=== PATIENT | female | born 1950 | race Caucasian/White ===

== ENCOUNTER 2022-10-01 03:21 | Inpatient (IN) | payer OTHER ==
[2022-10-01] VITALS (31 sets, daily range): BP systolic 137–181; PULSE 65–114; RESP 14–20; TEMP 97–101.3; O2SAT 60–100
[~2022-10-01] VITALS: Ht 157.5 cm; Wt 54.4 kg
--- NOTE | 2022-10-01 03:21 | NUR ---
Patient to ER bed 02 to gown for evaluation. Side rails up. Report given to RILEY SCOTT.
--- NOTE | 2022-10-01 03:22 | NUR ---
Dr. CAVAZOS at bedside examining the patient.
--- NOTE | 2022-10-01 03:23 | NUR ---
RT AT BEDSIDE.
[2022-10-01] MEDS ORDERED: NACL 0.9% 1,000 ML IV ONE (03:30)
[2022-10-01] MEDS ORDERED: levETIRAcetam 1,000 MG IV BAG 100 ML IV ONE (03:30)
[2022-10-01 03:51] LABS: BILIRUBIN,URINE NEGATIVE (NEGATIVE); BLOOD, URINE 1+ (NEGATIVE); COLOR,URINE YELLOW (YELLOW); GLUCOSE,URINE NEGATIVE (NEGATIVE); KETONES,URINE NEGATIVE (NEGATIVE); LEUKOCYTE ESTERASE ,URINE 3+ (NEGATIVE); NITRITE, URINE NEGATIVE (NEGATIVE); PH,URINE 8.5 (5.0-8.0); PROTEIN URINE 1+ (NEGATIVE); UROBILINOGEN,URINE 0.2 (0.2-1.0)
[2022-10-01 03:55] LABS: BASOPHILS % (AUTO) 0.4 % (0.0-2.0); EOSINOPHILS # (AUTO) 0.1 K/uL (0.0-0.4); EOSINOPHILS % (AUTO) 2.1 % (0.0-4.0); HEMOGLOBIN 11.3 g/dL (12.0-16.0); LYMPHOCYTES # (AUTO) 0.4 K/uL (1.0-5.5); LYMPHOCYTES % (AUTO) 6.7 % (20.5-51.5); MEAN CORPUSCULAR HEMOGLOBIN 28 pg (27-31); MEAN CORPUSCULAR HGB CONC 32 % (32-36); MEAN CORPUSCULAR VOLUME 87 fL (79.0-98.0); MONOCYTES # (AUTO) 0.3 K/uL (0.0-1.0); MONOCYTES % (AUTO) 5.6 % (1.7-9.3); NEUTROPHILS # (AUTO) 4.8 K/uL (1.8-7.7); NEUTROPHILS % (AUTO) 85.2 % (40.0-70.0); PLATELET COUNT (AUTO) 442 K/uL (130-430); RED BLOOD CELL COUNT(AUTO) 4.01 MIL/uL (4.2-6.2); RED CELL DISTRIBUTION WIDTH 14.6 % (9.0-15.0); WHITE BLOOD COUNT (AUTO) 5.6 K/uL (4.8-10.8)
[2022-10-01] MEDS ORDERED: levETIRAcetam 1,000 MG in NS 90 ML IV ONE (04:00)
[2022-10-01 04:11] LABS: PROTHROMBIN TIME 10.3 SECS (9.5-12.5)
[2022-10-01 04:17] LABS: ALBUMIN 2.6 g/dL (3.4-4.8); CALCIUM 8.3 mg/dL (8.4-11.0); CREATININE 0.71 mg/dL (0.55-1.30); PHOSPHORUS 4.5 mg/dL (2.7-4.5); TOTAL BILIRUBIN 0.2 mg/dL (0.0-1.0)
--- NOTE | 2022-10-01 04:30 | NUR ---
PATIENT TAKEN TO CT.
--- NOTE | 2022-10-01 04:40 | NUR ---
PATIENT IS BACK FROM CT.
[2022-10-01 04:43] LABS: CLARITY/URINE CLOUDY (CLEAR)
[2022-10-01 04:44] LABS: BACTERIA,URINE MANY /HPF (None Seen); WBC,URINE 20-50 /HPF (0-3)
[2022-10-01 04:45] LABS: TRIPLE PHOSPHATE CRYSTAL,UR 0-10 /HPF (None Seen)
[2022-10-01] MEDS ORDERED: cefTRIAXone 1 GM in D5W 50 ML IV ONE (05:00)
[2022-10-01] MEDS ORDERED: NACL 0.9% 1,000 ML IV SCH (05:15)
[2022-10-01] MEDS ORDERED: INSULIN REGULAR, HUMAN 100 UNITS/ML, 3 ML VIAL (humuLIN R) SUBCUT PRN ×2 (05:15→10:15)
[2022-10-01] MEDS ORDERED: cefTRIAXone 1 GM VIAL ONE (05:52)
--- NOTE | 2022-10-01 07:14 | NUR ---
REPORT GIVEN AND CARE TANSFERRED TO DECLAN LIN FOR CONTINUITY OF CARE.
--- NOTE | 2022-10-01 07:15 | NUR ---
RECEIVED PT FROM RILEY SCOTT. ASSUMED CARE.
[2022-10-01] MEDS ORDERED: DEXTROSE 50%-WATER 50 ML DISP.SYRIN IVP PRN (08:15)
[2022-10-01] MEDS ORDERED: GLUCOSE (DEXTROSE) ORAL GEL -Adults PO PRN (08:15)
[2022-10-01] MEDS ORDERED: D5W 1,000 ML IV PRN (08:15)
--- NOTE | 2022-10-01 08:25 | NUR ---
Transfer to ICU BED 7 via ACLS protocol. Licensed nurse present. IV present no signs or symptoms of infiltration.
--- NOTE | 2022-10-01 08:30 | NUR ---
RT NOTE: 0830 Helped transport patient from ER 2 to ICU 7. Patient was ventilated with [place] at 15LPM, FiO2 100%. Patient tolerated tranfer well. No respiratory issues during transport.
[2022-10-01] MEDS: PIPERACILLIN/TAZO 3.375/DEX-IS 50 ML IV SCH ×4 (08:40→23:05)
--- NOTE | 2022-10-01 08:53 | NUR ---
rt notes 0853 received pt from ED RT, Pt on AC 14,400VT, PEEP 5 100% FIO2. Portex 7. Titrated fio2 to 60%, pt saturating 100%. no resp distress noted.
[2022-10-01] MEDS ORDERED: LevETIRAcetam 500 MG/5 ML UDC ORAL LIQUID GT SCH ×2 (10:10→21:00)
[2022-10-01] MEDS ORDERED: DEXTROSE 50% JECT 50 ML DISP.SYRIN IVP PRN (10:15)
[2022-10-01] MEDS ORDERED: ACETAMINOPHEN 650 MG/20.3 ML UDC GT PRN (10:15)
--- NOTE | 2022-10-01 10:20 | NUR ---
Called Dr. Luna with a consult. He will be here this afternoon
[2022-10-01 10:30] LABS: TOTAL IRON BIND. CAPACITY 176 ug/dL (250-450)
[2022-10-01] MEDS ORDERED: FAMOTIDINE PF 20 MG/2 ML VIAL IVP ONE (10:30)
[2022-10-01] MEDS ORDERED: APIXABAN 2.5 MG TABLET PO ONE (10:30)
[2022-10-01] MEDS ORDERED: hydrALAZINE HCL 20 MG/ML VIAL IVP PRN (10:30)
[2022-10-01] MEDS ORDERED: amLODIPine BESYLATE 10 MG TABLET PO ONE (10:30)
[2022-10-01] MEDS ORDERED: DOCUSATE SODIUM 100 MG/10 ML UDC GT ONE (10:30)
[2022-10-01] MEDS ORDERED: ONDANSETRON HCL 4 MG/2 ML VIAL IVP PRN (10:30)
[2022-10-01] MEDS ORDERED: IPRATROPIUM/ALBUTEROL SULFATE 3 ML AMPUL.NEB (DUONEB) INH PRN (10:30)
[2022-10-01] MEDS ORDERED: ONDANSETRON HCL 4 MG/2 ML VIAL IVP ONE (10:30)
[2022-10-01] MEDS ORDERED: LevETIRAcetam 500 MG/5 ML UDC ORAL LIQUID GT ONE (10:30)
[2022-10-01] MEDS: METOCLOPRAMIDE HCL 10 MG/2 ML VIAL IVP SCH ×3 (11:03→23:05)
[2022-10-01] MEDS: IPRATROPIUM/ALBUTEROL SULFATE 3 ML AMPUL.NEB (DUONEB) INH SCH ×4 (11:33→23:15)
--- NOTE | 2022-10-01 11:33 | NUR ---
rt notes 1133 titrated fio2 to 40%. RILEY Hay made aware.
[2022-10-01] MEDS: D5/0.45 NS 1,000 ML IV SCH (12:30)
[2022-10-01] MEDS ORDERED: GENTAMICIN IN NACL, ISO-OSM 100 ML IV ONE (13:00)
[2022-10-01] MEDS: SCOPOLAMINE HYDROBROMIDE 1 MG PATCH .72 H (TRANSDERM-SCOP) TD SCH (14:00)
--- NOTE | 2022-10-01 14:00 | NUR ---
0840- admission from ER. Patient connected to ventilator w settings of AC 14 Fio2 80%, Tv 400 peep 5. Sats 100%. Trach size 7 PORTEX 10mm w cuff. Discussed w RT about saturation goals, lung assessment, and vap protocols. Nurse Jennifer reported vomiting en route to ICU. Patient orally suctioned. No desaturation observed. Patient turned together and observed sacral area as well as other pressure points with no evidence of pressure injuries. Optifoam placed to sacrum. 1000-rodriguez to gravity from ER emptied 550cc of yellow urine. No skin breakdown. 1030- Dr. mayers in to see patient and review home med rec. 1103- patient was medicated for vomiting 1115- Physical therapy in to see patient and perform ROM treatment. Discussed w Son Geovanni about continuing w passive ROM. 1300- antibiotics infusing as per orders. Main IVF started as per orders. 1330- Peg adaptor removed and replaced w devin valve. 1400- patient was medicated via peg and within minutes was vomiting pill residual and yellow gastric juice. She was oral suctioned and sats remains stable 98-99% with clear lungs.
[2022-10-01] MEDS: PEG 400/HYPROMELLOSE/GLYCERIN 15 ML DROPS OP SCH ×3 (14:30→20:47)
--- NOTE | 2022-10-01 14:50 | NUR ---
rt notes 1450 Titrated fio2 to 30%, no resp distress noted. RN aware.
--- NOTE | 2022-10-01 19:30 | NUR ---
PM ASSESSMENT REPORT RECEIVED FROM AM RN. PT RECEIVED IN BED WITH EYES CLOSED. VSS, NO S/S OF ACUTE DISTRESS NOTED. PT TRACH TO VENT, VENT SETTINGS: AC 14, TV 400, FIO2 30%, PEEP 5. SR ON MONITOR. RFA 20G INFUSING IVF PER ORDERS. GTUBE IN PLACE, CLAMPED. GRIFFITH CATH IN PLACE DRAINING URINE TO GRAVITY. HOB ELEVATED, BED LOCKED IN LOWEST POSITION, CALL LIGHT IN REACH. WILL CONTINUE TO MONITOR PT.
[2022-10-01] MEDS: CHLORHEXIDINE GLUCONATE 15 ML/DOSE, 480 ML MM SCH (20:41)
[2022-10-01] MEDS: GLYCOPYRROLATE 1 MG TABLET GT SCH (20:45)
[2022-10-01] MEDS: CARVEDILOL 6.25 MG TABLET (COREG) PO SCH (20:46)
[2022-10-01] MEDS: APIXABAN 2.5 MG TABLET PO SCH (20:46)
[2022-10-01] MEDS: levETIRAcetam 500 MG in NS 100 ML IV SCH (21:14)
[2022-10-02] VITALS (36 sets, daily range): BP systolic 119–162; PULSE 60–85; RESP 14–17; TEMP 97.8–100.3; O2SAT 93–100
[2022-10-02] MEDS: D5/0.45 NS 1,000 ML IV SCH ×2 (02:13→15:16)
[2022-10-02] MEDS: IPRATROPIUM/ALBUTEROL SULFATE 3 ML AMPUL.NEB (DUONEB) INH SCH ×6 (02:45→23:36)
[2022-10-02 04:53] LABS: BASOPHILS % (AUTO) 0.2 % (0.0-2.0); EOSINOPHILS % (AUTO) 0.4 % (0.0-4.0); HEMATOCRIT 28.8 % (36-48); HEMOGLOBIN 9.5 g/dL (12.0-16.0); LYMPHOCYTES # (AUTO) 0.7 K/uL (1.0-5.5); LYMPHOCYTES % (AUTO) 13.8 % (20.5-51.5); MEAN CORPUSCULAR HEMOGLOBIN 29 pg (27-31); MEAN CORPUSCULAR HGB CONC 33 % (32-36); MEAN CORPUSCULAR VOLUME 86 fL (79.0-98.0); MONOCYTES # (AUTO) 0.4 K/uL (0.0-1.0); MONOCYTES % (AUTO) 9.1 % (1.7-9.3); NEUTROPHILS # (AUTO) 3.7 K/uL (1.8-7.7); NEUTROPHILS % (AUTO) 76.5 % (40.0-70.0); PLATELET COUNT (AUTO) 356 K/uL (130-430); RED BLOOD CELL COUNT(AUTO) 3.33 MIL/uL (4.2-6.2); RED CELL DISTRIBUTION WIDTH 14.4 % (9.0-15.0); WHITE BLOOD COUNT (AUTO) 4.8 K/uL (4.8-10.8)
[2022-10-02] MEDS: PIPERACILLIN/TAZO 3.375/DEX-IS 50 ML IV SCH ×3 (05:22→18:03)
[2022-10-02] MEDS: METOCLOPRAMIDE HCL 10 MG/2 ML VIAL IVP SCH ×3 (05:23→18:02)
[2022-10-02 06:21] LABS: ALBUMIN 2.2 g/dL (3.4-4.8); CALCIUM 8.2 mg/dL (8.4-11.0); CREATININE 0.6 mg/dL (0.55-1.30); THYROID STIMULATING HORMONE 1.98 uIu/mL (0.34-4.82); TOTAL BILIRUBIN 0.2 mg/dL (0.0-1.0)
--- NOTE | 2022-10-02 07:30 | NUR ---
Received report for assumption of care. Pt resting comfortable on vent with a trach on the following settings: AC 14/400/30%/p5. 02 sats 95%. HOB up. Suctioned lots of clear oral secretions from trach and mouth. SR on monitor. Pt does not respond to questions but does move to stimulus. GT with tube feeding turned off, but will restart now. Abd soft. Pt has 2 PIV's with IVF infusing at 70cc/hr to right forearm. Pt has a rodriguze with [place] urine in bag. SR on monitor.
[2022-10-02 08:06] LABS: FOLATE (FOLIC ACID) >20.0 ng/mL (>3.0)
[2022-10-02] MEDS: CHLORHEXIDINE GLUCONATE 15 ML/DOSE, 480 ML MM SCH ×2 (09:00→22:43)
[2022-10-02] MEDS: ATORVASTATIN 10 MG TABLET GT SCH (09:31)
[2022-10-02] MEDS: MODAFINIL 100 MG TABLET (PROVIGIL) GT SCH (09:31)
[2022-10-02] MEDS: GLYCOPYRROLATE 1 MG TABLET GT SCH ×2 (09:32→22:43)
[2022-10-02] MEDS: MULTIVITAMINS TAB 1 TABLET GT SCH (09:32)
[2022-10-02] MEDS: CARVEDILOL 6.25 MG TABLET (COREG) PO SCH ×2 (09:32→22:46)
[2022-10-02] MEDS: amLODIPine BESYLATE 10 MG TABLET PO SCH (09:33)
[2022-10-02] MEDS: DOCUSATE SODIUM 100 MG/10 ML UDC GT SCH (09:33)
[2022-10-02] MEDS: APIXABAN 2.5 MG TABLET PO SCH ×2 (09:34→22:47)
[2022-10-02] MEDS: FAMOTIDINE PF 20 MG/2 ML VIAL IVP SCH (09:35)
[2022-10-02] MEDS: levETIRAcetam 500 MG in NS 100 ML IV SCH (09:36)
--- NOTE | 2022-10-02 09:40 | NUR ---
Pts son in to visit. Plan of care discussed and questions answered.
--- NOTE | 2022-10-02 10:57 | NUR ---
Pt vent was alarming high pressure on reading; hyper-oxignated patient and suctioned mouth and via ET. Pt was drooling and cleaned off dry blood from nostril and noticed maggots in nares bilaterally and underneath ET mouth guard. Infection control and wound care nurse notified. Oral and nasal care provided with syringes and peroxide. Maggots were removed. Wound care and infection control were present in the room. Addendum: 10/02/22 at 1902 by Deniz Kahn RN above entry made on wrong patient. This patient does not have maggots at this time.
--- NOTE | 2022-10-02 11:55 | NUR ---
EEG being done at bedside.
[2022-10-02] MEDS: PEG 400/HYPROMELLOSE/GLYCERIN 15 ML DROPS OP SCH ×4 (13:00→22:44)
--- NOTE | 2022-10-02 13:20 | NUR ---
Dr. Glynn in to see pt. Orders left.
--- NOTE | 2022-10-02 13:38 | NUR ---
RN DID NOT MEDICALLY CLEAR PATIENT FOR PT TREATMENT TODAY. WILL TRY AGAIN TOMORROW.
--- NOTE | 2022-10-02 14:04 | NUR ---
LIZ DONE. INFORMED RILEY KOEHLER ABOUT RESULTS.
--- NOTE | 2022-10-02 15:00 | NUR ---
Wound Evaluation: Wound Consult ordered for Low Juni Score. Patient evaluated for a low Juni score of 12. Patient was nonverbal, nonresponsive to verbal commands, intubated, and [facility] with an Isoflex MARIA ALEJANDRA mattress. Patient needs to be turned in bed. Skin is intact, with white scar tissue present on left buttock. Recommend: Reposition patient every 2 hours with pillow support. Elevate, off-load and float bilateral heels with one pillow lengthwise under each extremity. Offload pressure areas with pillows for pressure re-distribution. Perform skin care and monitor skin integrity Q shift. Use Hydraguard moisture barrier cream on moisture susceptible areas QID and PRN for soiling. Place a sacral foam dressing on sacral area for prophylaxis (change dressing daily, and as needed for dressing soiling or dislodgment; assess site every shift with peel and peak technique). Maintain patient on a low air-loss mattress.
--- NOTE | 2022-10-02 15:02 | NUR ---
Dietitian Recommendations * Glucerna 1.2 at 60 ml/hr, Free Water Flush: 50 ml Q6h via GT Provides: 1728 kcal/day, 86 gm protein/day, and 1359 ml free water/day Meets: 91% of upper end of estimated caloric needs, 80% of upper end of estimated protein needs, and 97% of upper end of estimated fluid needs LP, MS, RD Please refer to Nutrition Assessment for details. Addendum: 10/02/22 at [address] Amended: Links added.
[2022-10-02] MEDS: SOD FERRIC GLUC COMPLEX/SUC 125 MG in NS 100 ML IV SCH (15:15)
--- NOTE | 2022-10-02 16:43 | NUR ---
Letters written for patient's daughters in [place], they want to come to see their mother.
[2022-10-02] MEDS ORDERED: EPOETIN ALFA-EPBX 4,000 UNITS/ML VIAL SUBCUT ONE (17:00)
--- NOTE | 2022-10-02 17:00 | NUR ---
Son continues to visit.
[2022-10-02] MEDS ORDERED: POTASSIUM CHLORIDE 20 MEQ/PKT PACKET PO ONE (18:30)
--- NOTE | 2022-10-02 19:20 | NUR ---
Pt had a witnessed tonic clonic seizure lasting 2 minutes. No medication ordered for prn seizures seen on EMAR. Call placed to Dr. Luna and night supervisor RN made aware of event.
--- NOTE | 2022-10-02 19:25 | NUR ---
Spoke with Dr. Luna and made aware of the seizure. Orders left for ativan prn if further seizures. BEdside RN made aware.
[2022-10-02] MEDS ORDERED: VANCOMYCIN HCL 1 GM/NS PREMIX 250 ML IV ONE (20:00)
[2022-10-02] MEDS: LORazepam 2 MG/ML VIAL IVP PRN (20:27)
[2022-10-02] MEDS ORDERED: VANCOMYCIN HCL 1000 MG/VIAL IV ONE (21:53)
[2022-10-03] VITALS (35 sets, daily range): BP systolic 97–156; PULSE 62–88; RESP 14–36; TEMP 97.2–100.5; O2SAT 88–100
[2022-10-03] MEDS: levETIRAcetam 500 MG in NS 100 ML IV SCH ×2 (02:07→09:03)
[2022-10-03] MEDS: PIPERACILLIN/TAZO 3.375/DEX-IS 50 ML IV SCH ×4 (02:09→17:30)
[2022-10-03] MEDS: METOCLOPRAMIDE HCL 10 MG/2 ML VIAL IVP SCH ×4 (02:09→17:29)
[2022-10-03] MEDS: IPRATROPIUM/ALBUTEROL SULFATE 3 ML AMPUL.NEB (DUONEB) INH SCH ×6 (03:42→23:39)
[2022-10-03 05:23] LABS: BASOPHILS % (AUTO) 0.5 % (0.0-2.0); EOSINOPHILS # (AUTO) 0.1 K/uL (0.0-0.4); EOSINOPHILS % (AUTO) 1.8 % (0.0-4.0); HEMATOCRIT 28.6 % (36-48); LYMPHOCYTES # (AUTO) 0.9 K/uL (1.0-5.5); LYMPHOCYTES % (AUTO) 17.5 % (20.5-51.5); MEAN CORPUSCULAR HEMOGLOBIN 30 pg (27-31); MEAN CORPUSCULAR HGB CONC 35 % (32-36); MEAN CORPUSCULAR VOLUME 86 fL (79.0-98.0); MONOCYTES # (AUTO) 0.5 K/uL (0.0-1.0); MONOCYTES % (AUTO) 10.1 % (1.7-9.3); NEUTROPHILS # (AUTO) 3.4 K/uL (1.8-7.7); NEUTROPHILS % (AUTO) 70.1 % (40.0-70.0); PLATELET COUNT (AUTO) 347 K/uL (130-430); RED BLOOD CELL COUNT(AUTO) 3.33 MIL/uL (4.2-6.2); RED CELL DISTRIBUTION WIDTH 14.4 % (9.0-15.0); WHITE BLOOD COUNT (AUTO) 4.9 K/uL (4.8-10.8)
[2022-10-03] MEDS: D5/0.45 NS 1,000 ML IV SCH (05:54)
[2022-10-03 05:56] LABS: ALBUMIN 2.2 g/dL (3.4-4.8); CALCIUM 7.6 mg/dL (8.4-11.0); CREATININE 0.49 mg/dL (0.55-1.30); PHOSPHORUS 2.4 mg/dL (2.7-4.5); TOTAL BILIRUBIN 0.1 mg/dL (0.0-1.0)
[2022-10-03] MEDS ORDERED: POTASSIUM CHLORIDE 40 MEQ in NS 250 ML IV ONE (08:45)
[2022-10-03] MEDS: APIXABAN 2.5 MG TABLET PO SCH ×2 (09:00→22:11)
[2022-10-03] MEDS: MODAFINIL 100 MG TABLET (PROVIGIL) GT SCH (09:00)
[2022-10-03] MEDS: CARVEDILOL 6.25 MG TABLET (COREG) PO SCH ×2 (09:01→22:10)
[2022-10-03] MEDS: GLYCOPYRROLATE 1 MG TABLET GT SCH ×2 (09:01→22:07)
[2022-10-03] MEDS: ATORVASTATIN 10 MG TABLET GT SCH (09:01)
[2022-10-03] MEDS: FAMOTIDINE PF 20 MG/2 ML VIAL IVP SCH (09:02)
[2022-10-03] MEDS: MULTIVITAMINS TAB 1 TABLET GT SCH (09:02)
[2022-10-03] MEDS: amLODIPine BESYLATE 10 MG TABLET PO SCH (09:02)
[2022-10-03] MEDS: DOCUSATE SODIUM 100 MG/10 ML UDC GT SCH (09:02)
[2022-10-03] MEDS: CHLORHEXIDINE GLUCONATE 15 ML/DOSE, 480 ML MM SCH ×2 (09:04→22:07)
[2022-10-03] MEDS: PEG 400/HYPROMELLOSE/GLYCERIN 15 ML DROPS OP SCH ×4 (09:04→22:08)
[2022-10-03] MEDS ORDERED: POTASSIUM CHLORIDE 20 MEQ/PKT PACKET GT ONE (10:00)
[2022-10-03] MEDS ORDERED: ACETAMINOPHEN 650 MG/20.3 ML UDC GT PRN (10:15)
[2022-10-03] MEDS ORDERED: LORazepam 2 MG/ML VIAL IVP PRN (10:15)
--- NOTE | 2022-10-03 10:21 | NUR ---
Called [facility]ena [facility] with a consult,spoke with Kiah from the exchage
[2022-10-03] MEDS: POTASSIUM CHLORIDE 20 MEQ/PKT PACKET GT SCH ×2 (14:15→22:06)
[2022-10-03] MEDS: VANCOMYCIN HCL 1,250 MG in NS 250 ML IV SCH (14:16)
[2022-10-03] MEDS: LORazepam 2 MG/ML VIAL IVP PRN (14:30)
[2022-10-03] MEDS: SOD FERRIC GLUC COMPLEX/SUC 125 MG in NS 100 ML IV SCH (15:48)
[2022-10-03] MEDS ORDERED: levETIRAcetam 500 MG IV PREMIX 100 ML IV ONE (17:00)
[2022-10-03] MEDS: ACETYLCYSTEINE 20% 4 ML VIAL (RT) INH SCH (19:53)
[2022-10-03] MEDS: levETIRAcetam 1,000 MG IV BAG 100 ML IV SCH (21:53)
[2022-10-03] MEDS: LevETIRAcetam 500 MG/5 ML UDC ORAL LIQUID GT SCH (22:07)
[2022-10-04] VITALS (36 sets, daily range): BP systolic 108–147; PULSE 59–76; RESP 14–23; TEMP 98.4–99.1; O2SAT 96–100
[2022-10-04] MEDS: METOCLOPRAMIDE HCL 10 MG/2 ML VIAL IVP SCH ×4 (00:36→17:18)
[2022-10-04] MEDS: PIPERACILLIN/TAZO 3.375/DEX-IS 50 ML IV SCH ×4 (00:39→17:18)
[2022-10-04] MEDS: IPRATROPIUM/ALBUTEROL SULFATE 3 ML AMPUL.NEB (DUONEB) INH SCH ×6 (04:14→23:47)
[2022-10-04 05:43] LABS: BASOPHILS % (AUTO) 0.7 % (0.0-2.0); EOSINOPHILS # (AUTO) 0.2 K/uL (0.0-0.4); EOSINOPHILS % (AUTO) 4.5 % (0.0-4.0); HEMATOCRIT 27.3 % (36-48); HEMOGLOBIN 9.1 g/dL (12.0-16.0); LYMPHOCYTES % (AUTO) 21.1 % (20.5-51.5); MEAN CORPUSCULAR HEMOGLOBIN 29 pg (27-31); MEAN CORPUSCULAR HGB CONC 33 % (32-36); MEAN CORPUSCULAR VOLUME 86 fL (79.0-98.0); MONOCYTES # (AUTO) 0.4 K/uL (0.0-1.0); MONOCYTES % (AUTO) 9.8 % (1.7-9.3); NEUTROPHILS # (AUTO) 2.9 K/uL (1.8-7.7); NEUTROPHILS % (AUTO) 63.9 % (40.0-70.0); PLATELET COUNT (AUTO) 328 K/uL (130-430); RED BLOOD CELL COUNT(AUTO) 3.18 MIL/uL (4.2-6.2); RED CELL DISTRIBUTION WIDTH 14.6 % (9.0-15.0); WHITE BLOOD COUNT (AUTO) 4.5 K/uL (4.8-10.8)
[2022-10-04 06:10] LABS: CALCIUM 7.3 mg/dL (8.4-11.0); CREATININE 0.62 mg/dL (0.55-1.30); PHOSPHORUS 2.6 mg/dL (2.7-4.5)
[2022-10-04] MEDS: ACETYLCYSTEINE 20% 4 ML VIAL (RT) INH SCH ×4 (08:21→19:50)
[2022-10-04] MEDS: APIXABAN 2.5 MG TABLET PO SCH ×2 (08:34→22:57)
[2022-10-04] MEDS: ATORVASTATIN 10 MG TABLET GT SCH (08:35)
[2022-10-04] MEDS: CARVEDILOL 6.25 MG TABLET (COREG) PO SCH ×2 (08:35→22:56)
[2022-10-04] MEDS: MODAFINIL 100 MG TABLET (PROVIGIL) GT SCH (08:35)
[2022-10-04] MEDS: GLYCOPYRROLATE 1 MG TABLET GT SCH ×2 (08:35→22:54)
[2022-10-04] MEDS: amLODIPine BESYLATE 10 MG TABLET PO SCH (08:35)
[2022-10-04] MEDS: MULTIVITAMINS TAB 1 TABLET GT SCH (08:36)
[2022-10-04] MEDS: POTASSIUM CHLORIDE 20 MEQ/PKT PACKET GT SCH (08:36)
[2022-10-04] MEDS: LevETIRAcetam 500 MG/5 ML UDC ORAL LIQUID GT SCH (08:37)
[2022-10-04] MEDS: PEG 400/HYPROMELLOSE/GLYCERIN 15 ML DROPS OP SCH ×4 (08:37→22:55)
[2022-10-04] MEDS: FAMOTIDINE PF 20 MG/2 ML VIAL IVP SCH (08:37)
[2022-10-04] MEDS: levETIRAcetam 1,000 MG IV BAG 100 ML IV SCH ×2 (08:37→22:55)
[2022-10-04] MEDS: DOCUSATE SODIUM 100 MG/10 ML UDC GT SCH (08:38)
[2022-10-04] MEDS: CHLORHEXIDINE GLUCONATE 15 ML/DOSE, 480 ML MM SCH ×2 (08:38→22:55)
[2022-10-04] MEDS: SCOPOLAMINE HYDROBROMIDE 1 MG PATCH .72 H (TRANSDERM-SCOP) TD SCH (12:23)
[2022-10-04] MEDS: VANCOMYCIN HCL 1,250 MG in NS 250 ML IV SCH (13:24)
[2022-10-04] MEDS: SOD FERRIC GLUC COMPLEX/SUC 125 MG in NS 100 ML IV SCH (15:50)
[2022-10-04] MEDS: LORazepam 2 MG/ML VIAL IVP PRN (16:27)
[2022-10-05] VITALS (20 sets, daily range): BP systolic 121–156; PULSE 63–84; RESP 14–20; TEMP 97.5–98.6; O2SAT 97–100
[2022-10-05] MEDS: METOCLOPRAMIDE HCL 10 MG/2 ML VIAL IVP SCH ×4 (00:06→19:02)
[2022-10-05] MEDS: IPRATROPIUM/ALBUTEROL SULFATE 3 ML AMPUL.NEB (DUONEB) INH SCH ×6 (02:42→22:56)
[2022-10-05 04:58] LABS: BASOPHILS % (AUTO) 0.4 % (0.0-2.0); EOSINOPHILS # (AUTO) 0.2 K/uL (0.0-0.4); HEMATOCRIT 27.4 % (36-48); HEMOGLOBIN 9.1 g/dL (12.0-16.0); LYMPHOCYTES # (AUTO) 1.1 K/uL (1.0-5.5); LYMPHOCYTES % (AUTO) 18.5 % (20.5-51.5); MEAN CORPUSCULAR HEMOGLOBIN 29 pg (27-31); MEAN CORPUSCULAR HGB CONC 33 % (32-36); MEAN CORPUSCULAR VOLUME 87 fL (79.0-98.0); MONOCYTES # (AUTO) 0.5 K/uL (0.0-1.0); MONOCYTES % (AUTO) 8.7 % (1.7-9.3); NEUTROPHILS # (AUTO) 4.1 K/uL (1.8-7.7); NEUTROPHILS % (AUTO) 68.4 % (40.0-70.0); PLATELET COUNT (AUTO) 364 K/uL (130-430); RED BLOOD CELL COUNT(AUTO) 3.16 MIL/uL (4.2-6.2); RED CELL DISTRIBUTION WIDTH 14.9 % (9.0-15.0)
[2022-10-05 05:30] LABS: CALCIUM 7.8 mg/dL (8.4-11.0); CREATININE 0.54 mg/dL (0.55-1.30); PHOSPHORUS 2.9 mg/dL (2.7-4.5)
[2022-10-05] MEDS: ACETYLCYSTEINE 20% 4 ML VIAL (RT) INH SCH ×4 (07:12→19:10)
[2022-10-05] MEDS: DOCUSATE SODIUM 100 MG/10 ML UDC GT SCH (09:54)
[2022-10-05] MEDS: POTASSIUM CHLORIDE 20 MEQ/PKT PACKET GT SCH (09:55)
[2022-10-05] MEDS: ATORVASTATIN 10 MG TABLET GT SCH (09:55)
[2022-10-05] MEDS: MULTIVITAMINS TAB 1 TABLET GT SCH (09:55)
[2022-10-05] MEDS: GLYCOPYRROLATE 1 MG TABLET GT SCH ×2 (09:56→22:04)
[2022-10-05] MEDS: MODAFINIL 100 MG TABLET (PROVIGIL) GT SCH (09:56)
[2022-10-05] MEDS: CHLORHEXIDINE GLUCONATE 15 ML/DOSE, 480 ML MM SCH ×2 (09:57→21:00)
[2022-10-05] MEDS: FAMOTIDINE PF 20 MG/2 ML VIAL IVP SCH (09:57)
[2022-10-05] MEDS: PEG 400/HYPROMELLOSE/GLYCERIN 15 ML DROPS OP SCH ×4 (09:58→21:00)
[2022-10-05] MEDS: levETIRAcetam 1,000 MG IV BAG 100 ML IV SCH ×2 (10:03→22:04)
[2022-10-05] MEDS: amLODIPine BESYLATE 10 MG TABLET PO SCH (10:11)
[2022-10-05] MEDS: CARVEDILOL 6.25 MG TABLET (COREG) PO SCH ×2 (10:11→22:05)
[2022-10-05] MEDS: APIXABAN 2.5 MG TABLET PO SCH ×2 (10:13→22:09)
--- NOTE | 2022-10-05 14:15 | NUR ---
Nutrition F/U RDE reviewed pts current EMR including diet hx, physician notes, nursing notes, pertinent labs/meds/procedures, care trends and care activity. Admitting Diagnosis Sepsis and Seizure Medical History Comment: Per EMR review: 72 YOF w/ PMH of HTN, DM, chronic respiratory failure, SAH, FIELD [employer]OR shunt, GT feeding, anoxic encephalopathy, and HLD. 10/04: Per MD Becker, pt remains mechanical vent. Via trach. Pt unable to provide Hx d/t vent and ALOC. CT scan showed hypodensity in L hemisphere in frontal as well as the parietal region, this may correlate w/ prior stroke. Recommendations: Repeat EEG. Subjective Information Current TF prescription yields 1728 kcal/day, 86 gm protein/day, and 1159 ml free water/day. Pt transferred from ICU to Med-Surg Telemetry unit this morning. RDE rounded to pts room and pt was on a trach. Did not witness TF running until the afternoon. Revisited pt and Glucerna 1.2 was running at goal rate (60mL/hr) with no signs of intolerance from pt. Spoke w/ RN (Markos) and he said TF was not initiated earlier d/t insertion site complications. However, pt is doing fine overall. Current Diet Order/Nutrition Support Glucerna 1.2 at 60 mL/hr, Prosource TID, Free Water Flush: 50mL q6h via GT x 2 days Patient/Significant Other Unable To Verbalize Pertinent Medications KCl, Ativan, MVI Complex, Lipitor, Pepcid, Eliquis, Reglan, Albuterol Pertinent Labs H/H 9.1L/27.4L (worsening), Na 132L (improving), BG 98 WNL, Ca 7.8L (improving) 10/01: A1c 5.88H Height (Feet) 5 feet Height (Inches) 2.00 inches Weight (Pounds) 120 pounds (Stable since 10/02) Patient Weight 54.431 kg Body Mass Index 21.95 kg/m2 %IBW 109 [place]/Adjusted Body Weight 110#/50 kg; Adj IBW (quadriplegia): 96#/44 kg Weight Status Underweight Last BM Oct 04, 2022 x 1 Food Allergies Unable to assess Usual Diet At Home Glucerna 1.2 at 60 cc/hr x 20 hrs (1200 cc/1440 kcal/day) per R chart review Skin Integrity Comment: Juni score: 13 Wounds/edema: none noted Current % PO N/A Estimated Energy Expenditure (kcals/day) 5129-9971 (30-35 kcal/kg CBW [54kg] d/t sepsis) Estimated Protein Required (g/day) 81-108 (1.5-2 gm/kg CBW d/t sepsis) Estimated Fluid Required (l/day) [NEW] 1.4-1.6 (25-30 mL/kg CBW for GERIAT maintenance) Problem/Etiology/Signs/Symptoms Increased nutritional needs R/T metabolic demands AEB estimated nutritional requirements for sepsis (*Ongoing). Expected Outcomes/Goals Monitor tolerance to EN support w/ goal of pt meeting >80% of estimated nutritional needs, labs trending WNL, normal GI function, and skin integrity/ wt maintenance Dietitian Recommendations * Continue Glucerna 1.2 at 60 mL/hr, Free Water Flush: 50 ml Q6h via GT: Provides: 1728 kcal/day, 86 gm protein/day, and 1359 ml free water/day Meets: 91% of upper end of estimated caloric needs, 80% of upper end of estimated protein needs, and 97% of lower end of estimated fluid needs. Follow Up Moderate Risk: F/U in 3-5 days BRANDON SHEPPARD Trainee
--- NOTE | 2022-10-05 14:16 | NUR ---
Dietitian Recommendations * Continue Glucerna 1.2 at 60 mL/hr, Free Water Flush: 50 ml Q6h via GT: Provides: 1728 kcal/day, 86 gm protein/day, and 1359 ml free water/day Meets: 91% of upper end of estimated caloric needs, 80% of upper end of estimated protein needs, and 97% of lower end of estimated fluid needs. SILVER, RD Trainee Please refer to Nutrition Follow-up for further details.
--- NOTE | 2022-10-05 15:19 | NUR ---
PHYSICAL THERAPY CO-SIGN The Physical Therapy Progress Notes documented by Marbleizing Machine Tender have been reviewed. Reviewed/Co-Signed by: Austin Kaminski Documentation Done by:TRACI GIFFORD Addendum: 10/05/22 at 1519 by Austin Kaminski PT Amended: Links added.
[2022-10-05] MEDS: SOD FERRIC GLUC COMPLEX/SUC 125 MG in NS 100 ML IV SCH (17:24)
[2022-10-06] VITALS (17 sets, daily range): BP systolic 118–156; PULSE 64–98; RESP 14–18; TEMP 97.5–98.8; O2SAT 93–100
[2022-10-06] MEDS: METOCLOPRAMIDE HCL 10 MG/2 ML VIAL IVP SCH ×4 (00:18→17:18)
[2022-10-06] MEDS: IPRATROPIUM/ALBUTEROL SULFATE 3 ML AMPUL.NEB (DUONEB) INH SCH ×5 (02:50→19:33)
--- NOTE | 2022-10-06 04:00 | NUR ---
Patient care Patient was provided with a bed bath and full linen change. Nurse assistants and nurse in room to assist. Patient had soft formed brown stool, and was provided with pericare. Sacral foam dressing was changed (no open wound). Tracheal suction and oral care was provided. She was repositioned and turned for comfort, with heels on pillow support / heels offloading.
[2022-10-06] MEDS: ACETYLCYSTEINE 20% 4 ML VIAL (RT) INH SCH ×4 (08:02→19:33)
[2022-10-06] MEDS: DOCUSATE SODIUM 100 MG/10 ML UDC GT SCH (09:00)
[2022-10-06] MEDS: FAMOTIDINE PF 20 MG/2 ML VIAL IVP SCH (09:00)
[2022-10-06] MEDS: POTASSIUM CHLORIDE 20 MEQ/PKT PACKET GT SCH (09:00)
[2022-10-06] MEDS: MULTIVITAMINS TAB 1 TABLET GT SCH (09:00)
[2022-10-06] MEDS: APIXABAN 2.5 MG TABLET PO SCH ×2 (09:00→20:57)
[2022-10-06] MEDS: MODAFINIL 100 MG TABLET (PROVIGIL) GT SCH (09:00)
[2022-10-06] MEDS: amLODIPine BESYLATE 10 MG TABLET PO SCH (09:01)
[2022-10-06] MEDS: ATORVASTATIN 10 MG TABLET GT SCH (09:01)
[2022-10-06] MEDS: CARVEDILOL 6.25 MG TABLET (COREG) PO SCH ×2 (09:01→20:56)
[2022-10-06] MEDS: PEG 400/HYPROMELLOSE/GLYCERIN 15 ML DROPS OP SCH ×4 (09:02→21:00)
[2022-10-06] MEDS: levETIRAcetam 1,000 MG IV BAG 100 ML IV SCH ×2 (09:38→20:58)
[2022-10-06] MEDS: CHLORHEXIDINE GLUCONATE 15 ML/DOSE, 480 ML MM SCH (09:38)
[2022-10-06] MEDS: GLYCOPYRROLATE 1 MG TABLET GT SCH ×2 (09:39→21:06)
--- NOTE | 2022-10-06 10:24 | NUR ---
SENT PACKET OVER TO [facility] TO [facility] [phone] MRS WILSON WILL BE GOING TO ROOM 34A
[2022-10-06] MEDS ORDERED: VALPROIC ACID ORAL SYRUP 250 MG/5 ML UDC GT ONE (15:15)
--- NOTE | 2022-10-06 15:34 | NUR ---
PHYSICAL THERAPY CO-SIGN The Physical Therapy Progress Notes documented by Shook Machine Operator have been reviewed. Reviewed/Co-Signed by: Austin Kaminski Documentation Done by:TRACI GIFFORD Addendum: 10/06/22 at 1534 by Austin Kaminski PT Amended: Links added.
--- NOTE | 2022-10-06 16:11 | NUR ---
SPOKE TO YAEL AT [facility] FOR TRANSPORTION FOR MRS WILSON DL [phone] SHE GAVE ME AUTH# [id number] OUT OF THE [facility] CAN TAKE HER IN THE MORNING. YAEL AGREED
[2022-10-06] MEDS: LORazepam 2 MG/ML VIAL IVP PRN (17:45)
--- NOTE | 2022-10-06 20:00 | NUR ---
FAMILY AT BEDSIDE. ALL QUESTIONS ANSWERED. VENT SETTING UNCHANGED FROM AM SHIFT
[2022-10-06] MEDS: VALPROIC ACID ORAL SYRUP 250 MG/5 ML UDC GT SCH (20:55)
[2022-10-06] MEDS: CHLORHEXIDINE GLUC 0.12% 15 ML MOUTHWASH UDC MM SCH ×2 (21:00→21:10)
--- NOTE | 2022-10-06 22:00 | NUR ---
G-TUBE FLUSHED AND UNCLOGGED. PT TOLERATED WELL. ORAL CARE DONE WITH MOUTH WASH. TRACH SUCTIONED. FAMILY NO LONGER AT BEDSIDE
[2022-10-07] VITALS (10 sets, daily range): BP systolic 125–142; PULSE 74–85; RESP 13–18; TEMP 96.6–98; O2SAT 97–98
[2022-10-07] MEDS: METOCLOPRAMIDE HCL 10 MG/2 ML VIAL IVP SCH ×3 (00:46→11:22)
[2022-10-07] MEDS: IPRATROPIUM/ALBUTEROL SULFATE 3 ML AMPUL.NEB (DUONEB) INH SCH ×4 (05:40→11:03)
[2022-10-07] MEDS: ACETYLCYSTEINE 20% 4 ML VIAL (RT) INH SCH ×2 (07:16→11:04)
--- NOTE | 2022-10-07 07:47 | NUR ---
OPENING NOTE REPORT RCVD FROM OUTGOING NOC RN, ALL CARES ASSUMED. PATIENT STABLE IN NO ACUTE DISTRESS AND OR DISCOMFORT. ALL SAFETY PRECAUTIONS IN PLACE, BED LOW AND LOCKED FOR SAFETY, CALL LIGHT IN REACH. SRX2 FOR SAFETY. PATIENT REMAINS ON TELE MONITOR, HR WNL, MONITORING FOR CHANGES IN VITALS AND OR CONDITION.
--- NOTE | 2022-10-07 08:30 | NUR ---
PATIENT REPOSITIONED WITH PILLOW SUPPORT HEELS FLOATING. BED LOW AND LOCKED FOR SAFETY.
[2022-10-07] MEDS: MODAFINIL 100 MG TABLET (PROVIGIL) GT SCH (08:50)
[2022-10-07] MEDS: DOCUSATE SODIUM 100 MG/10 ML UDC GT SCH (08:50)
[2022-10-07] MEDS: FAMOTIDINE PF 20 MG/2 ML VIAL IVP SCH (08:50)
[2022-10-07] MEDS: POTASSIUM CHLORIDE 20 MEQ/PKT PACKET GT SCH (08:50)
[2022-10-07] MEDS: PEG 400/HYPROMELLOSE/GLYCERIN 15 ML DROPS OP SCH (08:51)
[2022-10-07] MEDS: ATORVASTATIN 10 MG TABLET GT SCH (08:51)
[2022-10-07] MEDS: MULTIVITAMINS TAB 1 TABLET GT SCH (08:51)
[2022-10-07] MEDS: amLODIPine BESYLATE 10 MG TABLET PO SCH (08:51)
[2022-10-07] MEDS: CARVEDILOL 6.25 MG TABLET (COREG) PO SCH (08:51)
[2022-10-07] MEDS: APIXABAN 2.5 MG TABLET PO SCH (08:52)
[2022-10-07] MEDS: CHLORHEXIDINE GLUC 0.12% 15 ML MOUTHWASH UDC MM SCH (08:52)
[2022-10-07] MEDS: levETIRAcetam 1,000 MG IV BAG 100 ML IV SCH (08:54)
[2022-10-07] MEDS: VALPROIC ACID ORAL SYRUP 250 MG/5 ML UDC GT SCH (08:59)
[2022-10-07] MEDS: GLYCOPYRROLATE 1 MG TABLET GT SCH (09:00)
--- NOTE | 2022-10-07 09:00 | NUR ---
AM RX GIVEN VIA G-TUBE, PATIENT TOLERATED WELL.
--- NOTE | 2022-10-07 10:05 | NUR ---
[facility] WILL BE PICKING UP MRS WILSON AT 1130AM TO TAKE HER BACK TO [facility]. [phone]
--- NOTE | 2022-10-07 10:43 | NUR ---
REPORT CALLED TO RILEY RUDOLPH AT [facility]. ALL QUESTIONS ANSWERED AND TIME GIVEN FOR QUESTIONS.
--- NOTE | 2022-10-07 10:44 | NUR ---
D/C NACHO PER ORDER
--- NOTE | 2022-10-07 11:12 | NUR ---
DR ZAYAS IN ROOM. DR ZAYAS SWITCHED PATIENT TO CPAP FOR SBT. ORDERED CPAP 5 PS 15 TOLERATED. PATIENT STARTED ON TRIAL. HHN TX GIVEN. VENT CONNECTED TO RED OUTLET. ALARMS AUDIBLE. WILL CONTINUE TO MONITOR PATIENT.
--- NOTE | 2022-10-07 11:17 | NUR ---
TRANSPORT ARRIVED, NO RT. HIDE AND SKIN FLESHING MACHINE OPERATOR ONE WILL CALL RT TO COME TO FACILITY FOR TRANSPORT.
[2022-10-07] MEDS: SCOPOLAMINE HYDROBROMIDE 1 MG PATCH .72 H (TRANSDERM-SCOP) TD SCH (11:22)
--- NOTE | 2022-10-07 11:55 | NUR ---
TRANSPORT ARRIVED WITH RT, REPORT GIVEN AT BEDSIDE. ASSISTED WITH TRANSFER FROM BED TO [facility], RT AT BEDSIDE, ALL SAFETY PRECAUTIONS IN PLACE, TRANSFER OF CARE COMPLETED.
--- NOTE | 2022-10-07 11:55 | NUR ---
PT TRANSFERRED Report given to RILEY Hussein at [facility]. Transfer packet with Transfer Orders and Medication Reconciliation form given to EMT with report. Exitcare provided. SD[facility] ID band removed, replaced with ID band with pt's name and . IV catheter removed, intact and dressing applied, no active bleeding. All belongings sent with patient. Patient left floor via gurney escorted by EMT in no distress.
--- NOTE | 2022-10-08 14:42 | NUR ---
PHYSICAL THERAPY CO-SIGN The Physical Therapy Progress Notes documented by Sql Server Architect have been reviewed. Reviewed/Co-Signed by: Austin Kaminski Documentation Done by:TRACI GIFFORD Addendum: 10/08/22 at 1442 by Austin Kaminski PT Amended: Links added.
== END 2022-10-07 13:00 | DRG 720 ==
LOC: SED 03:21 → SIC 05:15 → STU 10-05 09:35
PROVIDERS: ADMIT Internal Medicine; ATTEND Internal Medicine
PROC: 5A1955Z Respiratory Ventilation, Greater than 96 Consecutive Hours (ICD-10-PCS; principal; 2022-10-01)
PROC: 4A10X4Z Monitoring of Central Nervous Electrical Activity, External Approach (ICD-10-PCS; 2022-10-03)
DX: A41.9 Sepsis, unspecified organism (principal); J96.21 Acute and chronic respiratory failure with hypoxia; G82.50 Quadriplegia, unspecified; G93.1 Anoxic brain damage, not elsewhere classified; G91.9 Hydrocephalus, unspecified; E11.9 Type 2 diabetes mellitus without complications; D64.9 Anemia, unspecified; Z99.11 Dependence on respirator [ventilator] status; E78.5 Hyperlipidemia, unspecified; G40.909 Epilepsy, unspecified, not intractable, without status epilepticus; I10 Essential (primary) hypertension; N39.0 Urinary tract infection, site not specified; Z98.2 Presence of cerebrospinal fluid drainage device; Z20.822 Contact with and (suspected) exposure to COVID-19; Z86.73 Personal history of transient ischemic attack (TIA), and cerebral infarction without residual deficits
CPT/HCPCS: 36415; 36600; 70450-TC; 71045; 76376; 80048; 80053; 81000; 82140; 82607; 82746; 82800-TC; 82803; 82962; 83037; 83540; 83550; 83605; 83735; 84100; 84439; 84443; 85025; 85610-TC; 87040; 87081; 87086; 87186-TC; 94002; 94003; 94640; 94760; 95816; 96365; 96368; 97110-GP; 99291; G0378; J0696; J1580; J1953; J2060; J2405; J2543; J2765; J2916; J3370; J3480; J3490; J7040; J7050; J7060; J7608; Q5106